=== PATIENT | female | born 1980 | race Caucasian/White ===

== ENCOUNTER 2018-12-06 16:36 | Emergency (ER) | payer MEDICARE ==
[~2018-12-06] VITALS: Ht 160 cm; Wt 61.4 kg
[2018-12-06 16:46] VITALS: Ht 160 cm; Wt 61.4 kg
[2018-12-06 17:08] LABS: APPEARANCE CLEAR (CLEAR); BILIRUBIN NEGATIVE (NEGATIVE); COLOR YELLOW (YELLOW); GLUCOSE NEGATIVE (NEGATIVE); KETONE NEGATIVE (NEGATIVE); NITRITE NEGATIVE (NEGATIVE); PROTEIN NEGATIVE (NEGATIVE); UROBILINOGEN NORMAL (NORMAL)
[2018-12-06 17:14] LABS: UDS - AMPHET NEGATIVE QUAL (NEGATIVE); UDS - BARB NEGATIVE QUAL (NEGATIVE); UDS - BENZO NEGATIVE QUAL (NEGATIVE); UDS - COCAINE NEGATIVE QUAL (NEGATIVE); UDS - OPIATE NEGATIVE QUAL (NEGATIVE); UDS - PCP NEGATIVE QUAL (NEGATIVE); UDS - THC NEGATIVE QUAL (NEGATIVE)
[2018-12-06 17:21] LABS: BASOPHILS 0.3 % (0-2); EOSINOPHILS 0.5 % (0-7); HEMATOCRIT 40.2 % (36.0-48.0); HEMOGLOBIN 13.4 g/dL (12-16); LYMPHOCYTES 16.3 % (15-50); MCHC 33.3 g/dL (31.0-37.0); MCV 95.9 fL (80.0-100.0); MEAN PLATELET VOLUME 9.9 fL (7.4-10.4); MONOCYTES 7.1 % (2-11); NEUTROPHILS 75.8 % (40-80); PLATELET COUNT 283 10x3/uL (130-400); RBC 4.19 10x6/uL (4.00-5.40); RDW 13.6 % (11.5-14.5); WBC 6.2 10x3/uL (4.8-10.8)
[2018-12-06 17:32] LABS: ALBUMIN 3.8 g/dL (3.4-5.0); ANION GAP 12.3 mmol/L (8-16); BILIRUBIN - TOTAL 0.3 mg/dL (0.2-1.3); CALCIUM 8.5 mg/dL (8.5-10.1); CARBON DIOXIDE 27.3 mmol/L (21.0-32.0); CREATININE - SERUM 0.9 mg/dL (0.6-1.3); MAGNESIUM - SERUM 2.2 mg/dL (1.8-2.4); POTASSIUM - SERUM 3.6 mmol/L (3.5-5.1); PROTEIN - SERUM 7.7 g/dL (6.4-8.2)
[2018-12-06] MEDS ORDERED: BENZTROPINE MESY2 MG PO (19:32)
[2018-12-06 19:41] VITALS: BP 132/88
== END 2018-12-06 19:42 | disposition home or self-care (01) ==
LOC: D.ER 16:36
PROVIDERS: Emergency Medicine
DX: G25.71 Drug induced akathisia (principal)

== ENCOUNTER 2019-10-14 11:27 | Emergency (ER) | payer MEDICARE ==
[~2019-10-14] VITALS: Ht 160 cm; Wt 61.4 kg
[~2019-10-14 11:27] MED LIST: BENZTROPINE MESY2 MG PO
[2019-10-14 11:44] VITALS: BP 126/75; Ht 160 cm; Wt 61.4 kg
[2019-10-14] MEDS ORDERED: TRIFLUOPERAZINE10 MG PO (11:46)
[2019-10-14] MEDS ORDERED: PROZAC10 MG PO (11:46)
[2019-10-14] MEDS ORDERED: TRAZODONE HCL150 MG PO (11:47)
[2019-10-14] MEDS ORDERED: BENZTROPINE ME0.5 MG PO (11:47)
== END 2019-10-14 12:05 | disposition home or self-care (01) ==
LOC: D.ER 11:27
DX: F25.9 Schizoaffective disorder, unspecified (principal)

== ENCOUNTER 2019-10-15 10:48 | Emergency (ER) | payer MEDICARE ==
[~2019-10-15] VITALS: Ht 160 cm; Wt 61.4 kg
[~2019-10-15 10:48] MED LIST changes: +BENZTROPINE ME0.5 MG PO; +PROZAC10 MG PO; +TRAZODONE HCL150 MG PO; +TRIFLUOPERAZINE10 MG PO
[2019-10-15 10:57] VITALS: Ht 160 cm; Wt 61.4 kg
--- NOTE | 2019-10-15 11:53 | NUR ---
DR MONTE NOTIFIED AND REVIEWED PT'S BEHAVIOR AND ASSESSMENT RESULTS. PT IS A LOW RISK PER DR. MONTE. DR. MONTE STATED TO GIVE RESOURCES TO PT AT TIME OF DISCHARGE. NO FURTHER ORDERS AT THIS TIME. RESOURCES REVIEWED WITH PT. AND SHE VERBALIZED UNDERSTANDING. PT. STRONGLY DENIES SUICIDAL THOUGHTS AT THIS TIME, BUT RATHER EXPRESSED AN INTEREST IN BEING ADMITTED INTO A HALFWAY DUE TO HER NEED FOR A STRUCTURED ENVIRONMENT.
[2019-10-15 12:31] VITALS: BP 117/74
== END 2019-10-15 12:31 | disposition home or self-care (01) ==
LOC: D.ER 10:48
DX: F41.9 Anxiety disorder, unspecified (principal); F20.9 Schizophrenia, unspecified

== ENCOUNTER 2019-10-15 17:08 | Emergency (ER) | payer MEDICARE ==
[~2019-10-15] VITALS: Ht 160 cm; Wt 61.4 kg
[2019-10-15 17:11] VITALS: BP 120/77; Ht 160 cm; Wt 61.4 kg
== END 2019-10-15 18:09 | disposition home or self-care (01) ==
LOC: D.ER 17:08
DX: F60.89 Other specific personality disorders (principal)

== ENCOUNTER 2019-10-16 08:40 | Emergency (ER) | payer MEDICARE ==
[~2019-10-16] VITALS: Ht 160 cm; Wt 60.0 kg
[2019-10-16 08:42] VITALS: BP 114/68; Ht 160 cm; Wt 60.0 kg
== END 2019-10-16 09:25 | disposition home or self-care (01) ==
LOC: D.ER 08:40
DX: F41.8 Other specified anxiety disorders (principal)

== ENCOUNTER 2019-10-16 16:02 | Emergency (ER) | payer MEDICARE ==
[~2019-10-16] VITALS: Ht 160 cm; Wt 60.0 kg
[2019-10-16 16:08] VITALS: BP 132/76; Ht 160 cm; Wt 60.0 kg
[2019-10-16 16:29] LABS: BASOPHILS 0.2 % (0-2); EOSINOPHILS 0.6 % (0-7); HEMATOCRIT 41.7 % (36.0-48.0); HEMOGLOBIN 14.2 g/dL (12-16); IMMATURE GRANULOCYTES 0.1 % (0-5); LYMPHOCYTES 26.9 % (15-50); MCH 33.2 pg (26.0-34.0); MCHC 34.1 g/dL (31.0-37.0); MCV 97.4 fL (80.0-100.0); MEAN PLATELET VOLUME 9.5 fL (7.4-10.4); NEUTROPHILS 65.2 % (40-80); RBC 4.28 10x6/uL (4.00-5.40); RDW 12.9 % (11.5-14.5)
[2019-10-16 16:30] LABS: PLATELET COUNT 359 10x3/uL (130-400)
[2019-10-16 16:38] LABS: ANION GAP 21.7 mmol/L (8-16); CALCIUM 9.6 mg/dL (8.5-10.1); CREATININE - SERUM 1.2 mg/dL (0.6-1.3); POTASSIUM - SERUM 3.7 mmol/L (3.5-5.1)
[2019-10-16 16:45] LABS: ALBUMIN 4.2 g/dL (3.4-5.0); BILIRUBIN - TOTAL 0.53 mg/dL (0.2-1.3); MAGNESIUM - SERUM 2.2 mg/dL (1.8-2.4); PROTEIN - SERUM 8.3 g/dL (6.4-8.2)
[2019-10-16 16:55] LABS: APPEARANCE HAZY (CLEAR); BILIRUBIN NEGATIVE (NEGATIVE); COLOR YELLOW (YELLOW); GLUCOSE NEGATIVE (NEGATIVE); KETONE SMALL mg/dL (NEGATIVE); NITRITE NEGATIVE (NEGATIVE); PROTEIN NEGATIVE (NEGATIVE); SPECIFIC GRAVITY 1.025 (1.005-1.020); UROBILINOGEN NORMAL (NORMAL)
[2019-10-16 16:57] LABS: HCG URINE NEGATIVE (NEGATIVE)
[2019-10-16 17:01] LABS: BACTERIA MODERATE /hpf (NEGATIVE); EPITHELIAL CELLS 0-5 /hpf (0-5); RED CELLS - URINE 0-5 /hpf (0-5); WHITE CELLS - URINE 0-5 /hpf (NEGATIVE)
[2019-10-16 17:04] LABS: UDS - AMPHET NEGATIVE QUAL (NEGATIVE); UDS - BARB NEGATIVE QUAL (NEGATIVE); UDS - BENZO NEGATIVE QUAL (NEGATIVE); UDS - COCAINE NEGATIVE QUAL (NEGATIVE); UDS - OPIATE NEGATIVE QUAL (NEGATIVE); UDS - PCP NEGATIVE QUAL (NEGATIVE); UDS - THC NEGATIVE QUAL (NEGATIVE)
--- NOTE | 2019-10-16 17:53 | NUR ---
Discharge planning: CM met with the patient regarding DC needs/plans. Patient states she likes to sweep/clean sidewalks and needs something to keep her mind busy. States since her psych medications were changed, she is very jittery/agitated in the morning and starts to calm down around 5-6pm. Patient has requested to be placed in a NH or Assisted Living. CM discussed the skilled needs a patient would require to be placed in a NH. Also, an assisted living would require her to be independent with her care and routinely does not keep their residents busy /. CM provided a list of assisted living facilities in and made the patient aware that she and her mother would benefit visiting them and arrange finances accordingly.
== END 2019-10-16 18:13 | disposition home or self-care (01) ==
LOC: D.ER 16:02
PROVIDERS: Emergency Medicine
DX: F41.9 Anxiety disorder, unspecified (principal)

== ENCOUNTER 2020-04-28 10:38 | Emergency (ER) | payer MEDICARE ==
[~2020-04-28] VITALS: Ht 160 cm; Wt 59.1 kg
[2020-04-28 10:41] VITALS: Ht 160 cm; Wt 59.1 kg
[2020-04-28 11:23] LABS: BASOPHILS 0.4 % (0-2); EOSINOPHILS 3.2 % (0-7); HEMATOCRIT 39.9 % (36.0-48.0); HEMOGLOBIN 13.6 g/dL (12-16); IMMATURE GRANULOCYTES 0.9 % (0-5); LYMPHOCYTES 13.7 % (15-50); MCHC 34.1 g/dL (31.0-37.0); MCV 93.9 fL (80.0-100.0); MEAN PLATELET VOLUME 9.2 fL (7.4-10.4); MONOCYTES 4.5 % (2-11); NEUTROPHILS 77.3 % (40-80); RBC 4.25 10x6/uL (4.00-5.40); RDW 12.4 % (11.5-14.5); WBC 5.6 10x3/uL (4.8-10.8)
[2020-04-28 11:28] LABS: PLATELET COUNT 280 10x3/uL (130-400)
[2020-04-28 11:36] LABS: BILIRUBIN - TOTAL 0.5 mg/dL (0.2-1.3); CALCIUM 9.4 mg/dL (8.5-10.1); CARBON DIOXIDE 27.1 mmol/L (21.0-32.0); CREATININE - SERUM 1.1 mg/dL (0.6-1.3); PROTEIN - SERUM 7.7 g/dL (6.4-8.2)
[2020-04-28 12:08] LABS: ANION GAP 14.1 mmol/L (8-16); POTASSIUM - SERUM 4.2 mmol/L (3.5-5.1)
[2020-04-28 13:12] LABS: BILIRUBIN NEGATIVE (NEGATIVE); GLUCOSE NEGATIVE (NEGATIVE); KETONE SMALL mg/dL (NEGATIVE); NITRITE NEGATIVE (NEGATIVE); UROBILINOGEN NORMAL (NORMAL)
[2020-04-28 13:13] LABS: BACTERIA MODERATE /hpf (NEGATIVE); EPITHELIAL CELLS 0-5 /hpf (0-5); RED CELLS - URINE 0-5 /hpf (0-5); WHITE CELLS - URINE RARE /hpf (NEGATIVE)
[2020-04-28 13:26] LABS: UDS - AMPHET NEGATIVE QUAL (NEGATIVE); UDS - BARB NEGATIVE QUAL (NEGATIVE); UDS - BENZO NEGATIVE QUAL (NEGATIVE); UDS - COCAINE NEGATIVE QUAL (NEGATIVE); UDS - OPIATE NEGATIVE QUAL (NEGATIVE); UDS - PCP NEGATIVE QUAL (NEGATIVE); UDS - THC NEGATIVE QUAL (NEGATIVE)
[2020-04-28] MEDS ORDERED: VISTARIL25 MG PO (13:31)
[2020-04-28 13:38] VITALS: BP 134/86
== END 2020-04-28 13:38 | disposition home or self-care (01) ==
LOC: D.ER 10:38
PROVIDERS: Family Medicine
DX: F41.9 Anxiety disorder, unspecified (principal)

== ENCOUNTER 2020-05-02 09:50 | Emergency (ER) | payer MEDICARE ==
[~2020-05-02] VITALS: Ht 160 cm; Wt 59.1 kg
[~2020-05-02 09:50] MED LIST changes: +VISTARIL25 MG PO
[2020-05-02 10:00] VITALS: Ht 160 cm; Wt 59.1 kg
[2020-05-02 10:43] LABS: BASOPHILS 0.5 % (0-2); BILIRUBIN NEGATIVE (NEGATIVE); EOSINOPHILS 1.4 % (0-7); GLUCOSE NEGATIVE (NEGATIVE); HEMATOCRIT 41.8 % (36.0-48.0); HEMOGLOBIN 14.3 g/dL (12-16); IMMATURE GRANULOCYTES 0.2 % (0-5); KETONE SMALL mg/dL (NEGATIVE); LYMPHOCYTES 20.2 % (15-50); MCHC 34.2 g/dL (31.0-37.0); MCV 93.5 fL (80.0-100.0); MEAN PLATELET VOLUME 9.7 fL (7.4-10.4); MONOCYTES 6.5 % (2-11); NEUTROPHILS 71.2 % (40-80); NITRITE NEGATIVE (NEGATIVE); RBC 4.47 10x6/uL (4.00-5.40); RDW 12.1 % (11.5-14.5); UROBILINOGEN NORMAL (NORMAL); WBC 6.7 10x3/uL (4.8-10.8)
[2020-05-02 10:45] LABS: BACTERIA MODERATE /hpf (NEGATIVE); RED CELLS - URINE 0-5 /hpf (0-5); WHITE CELLS - URINE 0-5 /hpf (NEGATIVE)
[2020-05-02 10:48] LABS: PLATELET COUNT 379 10x3/uL (130-400)
[2020-05-02 10:55] LABS: ANION GAP 18.1 mmol/L (8-16); CALCIUM 9.5 mg/dL (8.5-10.1); CARBON DIOXIDE 22.5 mmol/L (21.0-32.0); CREATININE - SERUM 1.2 mg/dL (0.6-1.3); POTASSIUM - SERUM 3.6 mmol/L (3.5-5.1)
[2020-05-02 11:02] LABS: ALBUMIN 4.5 g/dL (3.4-5.0); BILIRUBIN - TOTAL 0.47 mg/dL (0.2-1.3); PROTEIN - SERUM 8.5 g/dL (6.4-8.2)
[2020-05-02 11:20] LABS: UDS - AMPHET NEGATIVE QUAL (NEGATIVE); UDS - BARB NEGATIVE QUAL (NEGATIVE); UDS - BENZO NEGATIVE QUAL (NEGATIVE); UDS - COCAINE NEGATIVE QUAL (NEGATIVE); UDS - OPIATE NEGATIVE QUAL (NEGATIVE); UDS - PCP NEGATIVE QUAL (NEGATIVE); UDS - THC NEGATIVE QUAL (NEGATIVE)
[2020-05-02] MEDS ORDERED: MACROBID100 MG PO (13:04)
[2020-05-02 14:05] VITALS: BP 102/62
== END 2020-05-02 14:05 | disposition home or self-care (01) ==
LOC: D.ER 09:50
PROVIDERS: Family Medicine
DX: F25.9 Schizoaffective disorder, unspecified (principal); R45.1 Restlessness and agitation; F41.9 Anxiety disorder, unspecified; N39.0 Urinary tract infection, site not specified

== ENCOUNTER 2020-05-02 15:14 | Observation (INO) | payer MEDICARE ==
[~2020-05-02] VITALS: Ht 160 cm; Wt 64.6 kg
[~2020-05-02 15:14] MED LIST changes: +MACROBID100 MG PO
[2020-05-02 16:12] LABS: EOSINOPHILS 0.7 % (0-7); HEMATOCRIT 39.3 % (36.0-48.0); HEMOGLOBIN 13.5 g/dL (12-16); IMMATURE GRANULOCYTES 0.1 % (0-5); MCH 31.9 pg (26.0-34.0); MCHC 34.4 g/dL (31.0-37.0); MCV 92.9 fL (80.0-100.0); MEAN PLATELET VOLUME 9.5 fL (7.4-10.4); MONOCYTES 9.1 % (2-11); NEUTROPHILS 69.1 % (40-80); RBC 4.23 10x6/uL (4.00-5.40); RDW 12.2 % (11.5-14.5); WBC 6.9 10x3/uL (4.8-10.8)
[2020-05-02 16:13] LABS: PLATELET COUNT 293 10x3/uL (130-400)
[2020-05-02 16:24] LABS: ANION GAP 15.8 mmol/L (8-16); CALCIUM 9.3 mg/dL (8.5-10.1); CARBON DIOXIDE 22.7 mmol/L (21.0-32.0); CREATININE - SERUM 1.3 mg/dL (0.6-1.3); POTASSIUM - SERUM 3.5 mmol/L (3.5-5.1)
[2020-05-02 16:28] LABS: ALBUMIN 4.2 g/dL (3.4-5.0); BILIRUBIN - TOTAL 0.82 mg/dL (0.2-1.3); PROTEIN - SERUM 7.9 g/dL (6.4-8.2)
[2020-05-02 16:57] VITALS: BP 113/77
[2020-05-02 18:40] LABS: BILIRUBIN NEGATIVE (NEGATIVE); GLUCOSE NEGATIVE (NEGATIVE); KETONE MODERATE mg/dL (NEGATIVE); NITRITE NEGATIVE (NEGATIVE); UROBILINOGEN NORMAL (NORMAL)
[2020-05-02 18:52] LABS: UDS - AMPHET NEGATIVE QUAL (NEGATIVE); UDS - BARB NEGATIVE QUAL (NEGATIVE); UDS - BENZO NEGATIVE QUAL (NEGATIVE); UDS - COCAINE NEGATIVE QUAL (NEGATIVE); UDS - OPIATE NEGATIVE QUAL (NEGATIVE); UDS - PCP NEGATIVE QUAL (NEGATIVE); UDS - THC NEGATIVE QUAL (NEGATIVE)
--- NOTE | 2020-05-02 19:43 | NUR ---
PT CHANGED INTO GOWN. IV BEGAN AND BOLUS STARTED. BELONGINGS SECURED AT THE DESK. EKG COMPLETED AND ON THE CHART. MENTAL HEALTH ASSESSMENT BEGAN PER GAIL LIRA.
--- NOTE | 2020-05-02 19:45 | NUR ---
DR. MONTE NOTIFIED AND SITTER ORDERED. SITTER AT BEDSIDE. NOTIFIED CHARGE NURSE AND ATTENDING IN REGARDS TO ASSESSMENT FINDINGS. REESOURCES GIVEN TO PATIENT AND SAFETY PLAN INITIATED.
--- NOTE | 2020-05-02 20:33 | NUR ---
LEMON MARSHALL SODA AND SANDWHICH TRAY TO PATIENT.
[2020-05-02 21:07] VITALS: BP 111/60
[2020-05-03] VITALS (20 sets, daily range): BP systolic 83–128; BP diastolic 34–79; Ht 160 cm; Wt 64.6 kg
--- NOTE | 2020-05-03 00:04 | NUR ---
PT ALERT AND WATCHING TV. IV CON'T TO INFUSE. V/S STABLE. SITTER PRESENT.
--- NOTE | 2020-05-03 01:14 | NUR ---
PATIENTS MOTHER STEVIE DUNN CALLED. REQUEST CALL [phone] AFTER PATIENT EVALUATED BY PSYCHIATRIST
--- NOTE | 2020-05-03 02:10 | NUR ---
RESTING QUIETLY WITH EYES CLOSED.
--- NOTE | 2020-05-03 06:11 | NUR ---
RECEIVED PT TO ROOM 2301 VIA STRETCHER ACCOMPANIED BY HOSPITAL STAFF. ICU MONITORS ESTABLISHED WITH ALARMS ON, VSS, SITTER AT BEDSIDE.
[2020-05-03 06:13] LABS: BASOPHILS 0.6 % (0-2); EOSINOPHILS 1.8 % (0-7); HEMATOCRIT 36.3 % (36.0-48.0); IMMATURE GRANULOCYTES 0.2 % (0-5); LYMPHOCYTES 22.7 % (15-50); MCH 31.3 pg (26.0-34.0); MCHC 33.1 g/dL (31.0-37.0); MCV 94.8 fL (80.0-100.0); MEAN PLATELET VOLUME 9.5 fL (7.4-10.4); NEUTROPHILS 64.7 % (40-80); PLATELET COUNT 255 10x3/uL (130-400); RBC 3.83 10x6/uL (4.00-5.40); RDW 12.5 % (11.5-14.5); WBC 5.4 10x3/uL (4.8-10.8)
[2020-05-03 06:30] LABS: ANION GAP 11.7 mmol/L (8-16); CARBON DIOXIDE 25.9 mmol/L (21.0-32.0); MAGNESIUM - SERUM 2.1 mg/dL (1.8-2.4); PHOSPHOROUS 3.8 mg/dL (2.5-4.9); POTASSIUM - SERUM 3.6 mmol/L (3.5-5.1)
--- NOTE | 2020-05-03 07:10 | NUR ---
REPORT RECEIVED FROM FABRIC STRETCHER AND PATIENT CAREE ASSUMED. PATIENT LAYING IN BED ON BACK AWAKE, ALERT AND ORIENTED X 4. PATIENT IS CALM AND COOPERATIVE. PATIENT QUESTIONS WHY ONE ON ONE SITTER IS PRESENT. INFORMED PATIENT THAT SITTER IS NECESSARY DUE TO INTENTIONAL INGESTION OF MULTIPLE PILLS. PATIENT STATES "THAT IS BULLSHIT! I DID NOT DO THAT!" INFORMED PATIENT THAT IT WAS WITNESSED BY ER NURSE. PATIENT STATES"THATS A LIE I DID NOT DO THAT!" INFORMED PATIENT THAT SITTER WILL BE PRESENT AT ALL TIMES. PATIENT DENIES ANY NEED OR PAIN. WILL CONTINUE WITH PLAN OF CARE. SR UP X 2 BED IN LOW POSITION AND CALL LIGHT IN REACH.
--- NOTE | 2020-05-03 07:10 | NUR ---
REPORT RECEIVED FROM EMPLOYEE BENEFITS DIRECTOR AND PATIENT CARE ASSUMED. PATIENT LAYING IN BED AWAKE, ALERT AND ORIENTED X 4. PATIENT EXHIBITS CALM BEHAVIOR. PATIENT QUESTIONED WHY SITTER AT BS. INFORMED PATIENT THAT DUE TO SWALLOWING HANDFUL OF UNKNOWN PILLS IN THE ER, PATIENT HAS ONE ON ONE. PATIENT STATES"THATS BS. I DID NOT." INFORMED PATIENT THAT ONE ON ONE WILL CONTINUE UNTIL FURTHER NOTICE. PATIENT DENIES ANY NEEDS OR PAIN. WILL CONTINUE WITH PLAN OF CARE. SR UP X 2 BED IN LOW POSITION AND CALL LIGHT LIGHT IN REACH.
--- NOTE | 2020-05-03 09:13 | NUR ---
PATIENT LAYING IN BED ON BACK WATCHING TV. PATIENT IS CALM. VSS. ASSESSMENT COMPLETED. WILL CONTINUE WITH PLAN OF CARE. SR UPX 2 BED IN LOW POSITION AND CALL LIGHT IN REACH.
--- NOTE | 2020-05-03 10:40 | NUR ---
PATIENT UP TO BS COMMODE. PATIENT URINATED. PATIENT BACK TO BED WITHOUT DIFFICULTY. PATIENT IS STABLE AND VSS. SITTER AT BED SIDE. PATIENT DENIES ANY NEEDS OR PAIN. SITTER AT BS. WILL CONTINUE WITH PLAN OF CARE. SR UP X 2 BED IN LOW POSITION AND CALL LIGHT IN REACH.
--- NOTE | 2020-05-03 13:19 | NUR ---
PATIENT RESTING QUIETLY IN BED ON BACK WITH EYES CLOSED AND BREATHING EVENLY. VSS. SITTER PRESENT. WILL CONTINUE WITH PLAN OF CARE. SR UP X 2 BED IN LOW POSITION AND CALL LIGHT IN REACH.
--- NOTE | 2020-05-03 15:14 | NUR ---
PATIENT NEEDS COVID TEST PRIOR TO TRANSFER TO A FACILITY. NASAL SWAB PERFORMED. PATIEITN TOLERATED WELL.
--- NOTE | 2020-05-03 18:08 | NUR ---
KRISTOPHER ROLLINS APN WITH DR GA IN TO SEE PATIENT. PHOTOGRAMMETRY AIRPLANE PILOT STATES THAT PATIENT IS CLEARED TO BE TRANSFERRED TO INPATIENT PSYCH FACILITY. THAT WILL BE COMPLETED IN AM. PATIENT IS STABLE , CALM AND VSS. PATIENT DENIES ANY NEEDS OR PAIN. WILL CONTINUE TO MONITOR. SR UPX 2 BED IN LOW POSITION AND CALL LIGHT IN REACH.
--- NOTE | 2020-05-03 18:11 | NUR ---
PER REQUEST AND PERMISSION OF PATIENT , CALLED PATIENTS MOTHER, STEVIE DUNN, AND GAVE INFO REGARDING RUBBER COVERING MACHINE OPERATOR VISIT AND PATIENT WILL BE TRANSFERRED TO INPATIENT PSYCH FACILITY TOMORROW. MOTHER VERBALIZED UNDERSTANDING AND ALL QUESTIONS ANSWERED TO SATISFACTION.
--- NOTE | 2020-05-03 18:39 | MORECARE ---
CASE MANAGEMENT DISCHARGE SUMMARY PATIENT: GIGI DUNN UNIT: [id number] ADM DATE: 05/03/20 AGE: 39 : [birth year] SEX: F ROOM/BED: D.2304 AUTHOR: SARAHY DHILLON PHYSICIAN: REFERRING PHYSICIAN: KIRAN STEINER MD DATE OF SERVICE: 05/03/20 Discharge Plan Patient Name: GIGI DUNN Facility: [facility]:[place] : 1980 Planned Disposition: Anticipated Discharge Date: Discharge Date: Expected LOS: Initial Reviewer: [email or web address] Initial Review Date: 05/03/2020 Generated: 05/03/20 7:38 pm External Providers External Provider: [facility] Next Contact Date: Service Request Date: Service Type: Resolution: Reviewer: Comments: Coverage Notice Reviewer: [id number] Naomie Ulloa Notice Issued Date-Time: 05/03/2020 15:35 Notice Type: Medicare Outpatient Observation Notice Notice Delivered To: Patient Relationship to Patient: Self Pharmaceutical Process Engineer Name: Delivery Method: HAND - Hand Delivered Kerry Days: Prior Verbal Notification: Recipient Understood Notice: Yes Recipient Signature: Yes Med Rec Note Co-signed by Attending: Coverage Notice Comment: Patient Name: GIGI DUNN Page [id number] at 1839 All edits/amendments must be made on the electronic document DICTATION DATE: 05/03/201837 TRIPOLER: CAN 05/03/201837 RPT#: [id number] DC DATE: STATUS: ADM IN [facility] [address] [place] [address] END OF REPORT
[2020-05-04 00:20] VITALS: BP 94/59
[2020-05-04] MEDS ORDERED: APAP325 MG PO (02:04)
[2020-05-04] MEDS ORDERED: HYDROXYZINE HCL50 MG PO (02:07)
--- NOTE | 2020-05-04 09:24 | MORECARE ---
CASE MANAGEMENT DISCHARGE SUMMARY PATIENT: GIGI DUNN UNIT: [id number] ADM DATE: 05/03/20 AGE: 39 : 78 SEX: F ROOM/BED: D.2304 AUTHOR: SARAHY DHILLON PHYSICIAN: REFERRING PHYSICIAN: KIRAN STEINER MD DATE OF SERVICE: 05/04/20 Discharge Plan Patient Name: GIGI DUNN Facility: [facility]:[place] : 1980 Planned Disposition: Anticipated Discharge Date: Discharge Date: 05/04/2020 Expected LOS: Initial Reviewer: [email or web address] Initial Review Date: 05/03/2020 Generated: 05/04/20 10:24 am Coverage Notice Reviewer: [email or web address] Naomie Ulloa Notice Issued Date-Time: 05/03/2020 15:35 Notice Type: Medicare Outpatient Observation Notice Notice Delivered To: Patient Relationship to Patient: Self Recovery Coordinator Name: Delivery Method: HAND - Hand Delivered Kerry Days: Prior Verbal Notification: Recipient Understood Notice: Yes Recipient Signature: Yes Med Rec Note Co-signed by Attending: Coverage Notice Comment: Last DP export: 05/03/20 5:39 pm Patient Name: GIGI DUNN Page [id number] at 0924 All edits/amendments must be made on the electronic document DICTATION DATE: 05/04/20923 COMPUTER NETWORKER: CAN 05/04/20923 RPT#: [id number] DC DATE:05/04/20 STATUS: DIS IN [place] [id number] [place] [address] END OF REPORT
== END 2020-05-04 03:10 | disposition short-term general hospital (02) ==
LOC: D.ER 15:14 → D.ICU 05-03 04:45 → OBSVTIME 05-03 04:45 → D.ICU 05-03 18:14
PROVIDERS: Family Medicine; ADMIT Family Medicine; ATTEND Family Medicine
DX: T50.902A Poisoning by unspecified drugs, medicaments and biological substances, intentional self-harm, initial encounter (principal); F41.8 Other specified anxiety disorders; F20.9 Schizophrenia, unspecified; F33.2 Major depressive disorder, recurrent severe without psychotic features